=== PATIENT | female | born 1980 | race Caucasian/White ===

== ENCOUNTER 2020-06-03 06:17 | Emergency (ER) | payer MEDICAID ==
[~2020-06-03] VITALS: Ht 154.9 cm; Wt 76.2 kg
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
[2020-06-03] MEDS ORDERED: ACETAMINOPHEN 325 MG TABLET ONE (06:42)
[2020-06-03] MEDS: ACETAMINOPHEN 325 MG TABLET PO ONE (06:47)
--- NOTE | 2020-06-03 06:49 | NUR ---
XRAY AT BEDSIDE
[2020-06-03] MEDS ORDERED: TDAP [DIPH/PERTUSSIS/TET] 0.5 ML VIAL IM ONE (07:08)
[2020-06-03] MEDS: TDAP [DIPH/PERTUSSIS/TET] 0.5 ML VIAL IM ONE (07:12)
--- NOTE | 2020-06-03 07:53 | NUR ---
Patient discharged to home in stable condition. Written and verbal after care instructions given. Patient verbalizes understanding of instruction.
[2020-06-03 07:54] VITALS: BP 131/97
== END 2020-06-03 07:55 | disposition home or self-care (01) ==
LOC: ER 06:17
DX: S70.11XA Contusion of right thigh, initial encounter (principal); S90.511A Abrasion, right ankle, initial encounter; M25.551 Pain in right hip; M25.561 Pain in right knee; Z98.890 Other specified postprocedural states; V03.99XA Pedestrian with other conveyance injured in collision with car, pick-up truck or van, unspecified whether traffic or nontraffic accident, initial encounter; Y93.89 Activity, other specified; Y92.89 Other specified places as the place of occurrence of the external cause; Y99.8 Other external cause status
CPT/HCPCS: 73502; 73564-TC; 90715

== ENCOUNTER 2024-05-06 18:11 | Emergency (ER) | payer MEDICAID ==
[~2024-05-06] VITALS: Ht 157.5 cm; Wt 65.8 kg
[2024-05-06 19:00] VITALS: BP 132/79; TEMP 98.6; O2SAT 98
[2024-05-06] MEDS ORDERED: BENZ-13 PO (19:51)
[2024-05-06] MEDS ORDERED: IBUP-1955 PO (19:51)
--- NOTE | 2024-05-06 20:23 | NUR ---
Patient discharged to home in stable condition. Written and verbal after care instructions given. Patient verbalizes understanding of instruction.
== END 2024-05-06 20:30 | disposition home or self-care (01) ==
LOC: ER 18:18
DX: J06.9 Acute upper respiratory infection, unspecified (principal); R05.9 Cough, unspecified; R51.9 Headache, unspecified; R09.81 Nasal congestion; I10 Essential (primary) hypertension; Z79.1 Long term (current) use of non-steroidal anti-inflammatories (NSAID); Z98.890 Other specified postprocedural states; Z79.899 Other long term (current) drug therapy
CPT/HCPCS: 71045-TC